=== PATIENT | male | born 1970 | race Asian ===

== ENCOUNTER 2025-04-09 10:15 | Emergency (ER) | payer BC ==
[~2025-04-09] VITALS: Ht 170.2 cm; Wt 63.7 kg
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
--- NOTE | 2025-04-09 12:44 | DVH ---
INDICATION: pain COMPARISON: None TECHNIQUE:4 views of the thoracic spine were obtained. FINDINGS: Moderate multilevel degenerative disc disease of the thoracic spine. No acute fracture, vertebral compression deformity or aggressive osseous lesions. The imaged thorax and abdomen are grossly unremarkable. IMPRESSION: No acute fracture.
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
[2025-04-09] MEDS ORDERED: METH-1181 PO (13:01)
[2025-04-09] MEDS ORDERED: NAPR-746 PO (13:01)
[2025-04-09 13:06] VITALS: BP 127/75; PULSE 76; RESP 18; TEMP 98; O2SAT 95
== END 2025-04-09 13:07 | disposition home or self-care (01) ==
LOC: ER 10:15 → EDBD 10:15 → ER 13:07
DX: S16.1XXA Strain of muscle, fascia and tendon at neck level, initial encounter (principal); S29.012A Strain of muscle and tendon of back wall of thorax, initial encounter; V89.2XXA Person injured in unspecified motor-vehicle accident, traffic, initial encounter; Y93.I9 Activity, other involving external motion; Y92.488 Other paved roadways as the place of occurrence of the external cause; Y99.8 Other external cause status
CPT/HCPCS: 72040; 72070